=== PATIENT | female | born 1955 | race Caucasian/White ===

== ENCOUNTER → 2018-12-24 | Outpatient (CLI) | payer MEDICARE, BC ==
--- NOTE | 2018-12-24 11:38 | Diagnostic Imaging Report ---
PROCEDURE: MR imaging left lower extremity without contrast. TECHNIQUE: Multiplanar, multisequence non contrast enhanced MR imaging of the left lower extremity was accomplished. INDICATION: Left thigh mass. COMPARISON: None available. FINDINGS: MR imaging of the proximal one-third of the left thigh was performed. No soft tissue mass is appreciated within the subcutaneous tissues. Additionally, there is no abnormal soft tissue mass within the anterior, posterior or adductor compartments of the thigh. Left femur is normal in appearance. No regional lymphadenopathy. The sciatic nerve has a normal course and appearance. IMPRESSION: 1. No soft tissue mass or fluid collection within the proximal one third of the left thigh. Dictated by: Dictated on workstation # [id number]
== END ==
LOC: RAD 08:06
PROVIDERS: ATTEND Family Medicine
DX: R22.42 Localized swelling, mass and lump, left lower limb (principal)

== ENCOUNTER → 2019-07-03 | Outpatient (CLI) | payer MEDICARE, BC ==
--- NOTE | 2019-07-03 14:19 | Diagnostic Imaging Report ---
Indication: Left knee pain There is severe narrowing of the lateral tibiofemoral joint space and of the patellofemoral joint with probable bone on bone contact. There are large osteophytes forming at the margins of the articular surfaces. The medial tibiofemoral joint space is well-maintained. There are also osteophytes forming in there is slight irregularity of the cortical surface. IMPRESSION: Tricompartmental degenerative changes worse in the lateral tibiofemoral and patellofemoral compartments of the knee. Dictated by: Dictated on workstation # [id number]
== END ==
LOC: RAD FS 13:46
PROVIDERS: ATTEND Nurse Practitioner
DX: M17.11 Unilateral primary osteoarthritis, right knee (principal)
CPT/HCPCS: 73562

== ENCOUNTER → 2019-07-24 | Outpatient (CLI) | payer MEDICARE, BC ==
[2019-07-24 12:00] LABS: ALBUMIN 4.3 GM/DL (3.2-4.5); BILIRUBIN,TOTAL 0.3 MG/DL (0.1-1.0); CALCIUM 9.7 MG/DL (8.5-10.1); CREATININE SERUM 1.18 MG/DL (0.60-1.30); POTASSIUM 5.2 MMOL/L (3.6-5.0); TOTAL PROTEIN 6.9 GM/DL (6.4-8.2)
== END ==
LOC: LAB FS 10:30
PROVIDERS: ATTEND Family Medicine
DX: I10 Essential (primary) hypertension (principal); E11.9 Type 2 diabetes mellitus without complications
CPT/HCPCS: 36415; 80053; 80061; 83036

== ENCOUNTER → 2020-01-22 | Outpatient (CLI) | payer MEDICARE, BC ==
[2020-01-22 11:20] LABS: BUN/CREATININE RATIO 19; CARBON DIOXIDE 22 MMOL/L (21-32); CHLORIDE 97 MMOL/L (98-107); CREATININE SERUM 1.09 MG/DL (0.60-1.30); GFR ESTIMATED 50; POTASSIUM 4.5 MMOL/L (3.6-5.0); SODIUM 135 MMOL/L (135-145)
[2020-01-22 11:21] LABS: ALANINE AMINOTRANSFERASE 9 U/L (0-55); ALBUMIN 4.5 GM/DL (3.2-4.5); ALKALINE PHOSPHATASE 99 U/L (40-136); BILIRUBIN,TOTAL 0.4 MG/DL (0.1-1.0); CALCIUM 9.9 MG/DL (8.5-10.1); GLUCOSE 243 MG/DL (70-105); TOTAL PROTEIN 7.3 GM/DL (6.4-8.2)
[2020-01-22 15:02] LABS: CHOLESTEROL 290 MG/DL (< 200); HDL CHOLESTEROL 37 MG/DL (40-60); TRIGLYCERIDES 467 MG/DL (<150)
== END ==
LOC: LAB FS 10:28
PROVIDERS: ATTEND Family Medicine
DX: E11.9 Type 2 diabetes mellitus without complications (principal)
CPT/HCPCS: 36415; 80053; 80061; 83036

== ENCOUNTER → 2020-07-12 | Outpatient (CLI) | payer MEDICARE, BC ==
[2020-07-12 10:59] LABS: CREATININE SERUM 1.12 MG/DL (0.60-1.30); POTASSIUM 4.6 MMOL/L (3.6-5.0)
[2020-07-12 11:00] LABS: ALBUMIN 4.2 GM/DL (3.2-4.5); BILIRUBIN,TOTAL 0.4 MG/DL (0.1-1.0); CALCIUM 9.4 MG/DL (8.5-10.1); TOTAL PROTEIN 6.6 GM/DL (6.4-8.2)
== END ==
LOC: LAB FS 09:24
PROVIDERS: ATTEND Family Medicine
DX: E11.9 Type 2 diabetes mellitus without complications (principal); I10 Essential (primary) hypertension
CPT/HCPCS: 36415; 80053; 80061; 83036

== ENCOUNTER → 2021-01-18 | Outpatient (CLI) | payer MEDICARE, BC ==
[2021-01-18 11:17] LABS: ALBUMIN 4.3 GM/DL (3.2-4.5); BILIRUBIN,TOTAL 0.4 MG/DL (0.1-1.0); CALCIUM 9.5 MG/DL (8.5-10.1); CREATININE SERUM 1.08 MG/DL (0.60-1.30); POTASSIUM 4.5 MMOL/L (3.6-5.0); TOTAL PROTEIN 7.1 GM/DL (6.4-8.2)
== END ==
LOC: LAB FS 10:16
PROVIDERS: ATTEND Family Medicine
DX: E11.9 Type 2 diabetes mellitus without complications (principal); I10 Essential (primary) hypertension
CPT/HCPCS: 36415; 80053; 80061; 82043; 83036

== ENCOUNTER → 2021-04-18 | Outpatient (CLI) | payer MEDICARE, BC ==
--- NOTE | 2021-04-18 11:08 | Diagnostic Imaging Report ---
Indication: Right hip pain. TIME OF EXAM: 9:41 AM Single AP view of pelvis shows femoral acetabular alignment to be normal. Femoral heads and necks are intact. Rami are intact. No fractures are seen. IMPRESSION: No acute bony abnormality is detected. Dictated by: Dictated on workstation # [id number]
--- NOTE | 2021-04-18 11:09 | Diagnostic Imaging Report ---
Indication: Right hip pain. TIME OF EXAM: 9:42 AM 2 views right hip demonstrates normal femoral acetabular alignment. Femoral head and neck are intact. No fractures are seen. Right-sided rami are intact. IMPRESSION: No acute bony abnormality is detected. Dictated by: Dictated on workstation # [id number]
--- NOTE | 2021-04-18 11:14 | Diagnostic Imaging Report ---
Indication: Right hip pain. TIME OF EXAM: 9:44 AM 3 views lumbar spine demonstrates normal curvature lumbar spine. There is minimal retrolisthesis of L1 on L2. There is minimal anterolisthesis of L4 on L5. Vertebral body heights are maintained. No acute compression fracture seen. Severe multilevel degenerative disc disease is seen with disc space narrowing and marginal spurring. Vacuum discs at multiple levels. There is also severe multilevel facet arthropathy. IMPRESSION: Severe lumbar spondylosis. No acute compression fracture is detected. Dictated by: Dictated on workstation # [id number]
== END ==
LOC: RAD FS 09:25
PROVIDERS: ATTEND Nurse Practitioner
DX: M47.816 Spondylosis without myelopathy or radiculopathy, lumbar region (principal); M70.62 Trochanteric bursitis, left hip
CPT/HCPCS: 72100; 72170; 73502

== ENCOUNTER → 2021-06-14 | Outpatient (CLI) | payer MEDICARE, BC | LOC: LAB FS 11:06 | PROVIDERS: ATTEND Family Medicine | DX: E11.9 Type 2 diabetes mellitus without complications (principal) | CPT/HCPCS: 36415; 83036 ==

== ENCOUNTER → 2021-08-09 | Outpatient (CLI) | payer MEDICARE, BC | LOC: LAB FS 11:00 | PROVIDERS: ATTEND Family Medicine | DX: M25.50 Pain in unspecified joint (principal) | CPT/HCPCS: 36415; 86038; 86200 ==

== ENCOUNTER → 2021-08-26 | Outpatient (CLI) | payer MEDICARE, BC | LOC: LABNPT 15:26 | PROVIDERS: ATTEND Family Medicine | DX: N39.0 Urinary tract infection, site not specified (principal); B37.3 Candidiasis of vulva and vagina | CPT/HCPCS: 87077; 87088; 87186 ==

== ENCOUNTER → 2021-09-08 | Outpatient (CLI) | payer MEDICARE, BC ==
[2021-09-08 11:29] LABS: BILIRUBIN,TOTAL 0.3 MG/DL (0.1-1.0); CALCIUM 10.1 MG/DL (8.5-10.1); CREATININE SERUM 0.91 MG/DL (0.60-1.30); POTASSIUM 4.2 MMOL/L (3.6-5.0); TOTAL PROTEIN 7.2 GM/DL (6.4-8.2)
[2021-09-08 11:30] LABS: ALBUMIN 4.3 GM/DL (3.2-4.5)
== END ==
LOC: LAB FS 10:17
PROVIDERS: ATTEND Family Medicine
DX: E11.9 Type 2 diabetes mellitus without complications (principal)
CPT/HCPCS: 36415; 80053; 80061; 83036

== ENCOUNTER → 2022-02-07 | Outpatient (CLI) | payer MEDICARE, BC ==
[2022-02-07 11:56] LABS: BILIRUBIN,TOTAL 0.4 MG/DL (0.1-1.0); CALCIUM 9.5 MG/DL (8.5-10.1); CREATININE SERUM 0.97 MG/DL (0.60-1.30); POTASSIUM 4.3 MMOL/L (3.6-5.0); TOTAL PROTEIN 7.3 GM/DL (6.4-8.2)
[2022-02-07 11:57] LABS: ALBUMIN 4.4 GM/DL (3.2-4.5)
== END ==
LOC: LAB FS 11:03
PROVIDERS: ATTEND Family Medicine
DX: E11.9 Type 2 diabetes mellitus without complications (principal)
CPT/HCPCS: 36415; 80053; 80061; 82043; 83036